=== PATIENT | female | born 1990 | race Caucasian/White ===

== ENCOUNTER → 2016-08-07 | Outpatient (CLI) | payer OTHER | END | disposition home or self-care (01) | LOC: LABWHC1 08:46 | PROVIDERS: ATTEND Obstetrics & Gynecology | DX: N91.2 Amenorrhea, unspecified (principal) | CPT/HCPCS: 36415; 84439; 84443 ==

== ENCOUNTER → 2016-12-31 | Outpatient (CLI) | payer OTHER ==
--- NOTE | 2016-12-31 13:56 | US ---
EXAMINATION TYPE: US OB <= 14 wk fetus DATE OF EXAM: 12/31/2016 COMPARISON: NONE CLINICAL HISTORY: Z36 CONFIRM DATES. Confirm dates, 3, para 2 EXAM PERFORMED: Transabdominal (TA) EXAM MEASUREMENTS: GESTATIONAL AGE / DATING Physician Established: (14 weeks/6 days) EDC: 06/25/2017 Dates by LMP: (14 weeks/6 days) EDC: 06/25/2017 Dates by First Scan: This is 1st scan Dates by Current Scan for: (13 weeks/3 days) EDC: 07/05/2017 MATERNAL ANATOMY Uterus: 15.9 x 8.6 x 7.5cm, anteverted Right Ovary: 2.8 x 2.0 x 2.9cm Left Ovary: 3.9 x 2.7 x 2.8cm Post CDS / Adnexa: wnl Presence of free fluid: no Presence of corpus luteal cyst: not seen at this time Presence of subchorionic bleed: no GESTATION / SURVEY CRL: 7.3cm (13 weeks/3 days) Yolk Sac (normal less than 6mm): not seen at this time Heart Rate: 150 bpm Rhythm: Normal IUP: Viable IUP Nuchal Translucency 10-14wks (normal less than 3mm): 2.3mm Date of LMP: 09/18/2016 Beta HcG (if available): Not available at time of exam Viable single IUP measuring 13 weeks 3 days with a heart rate of 150bpm and an estimated delivery denny e of 07/05/2017. Single live intrauterine gestation is present as gestational sac and pole are seen. Yolk sac is not clearly identified. No free fluid is seen in pelvic cul-de-sac. Both ovaries are identified. No suspicious extraovarian adnexal masses are seen. IMPRESSION: Single live intrauterine gestation is present, mean crown-rump length is 7.3 cm corresponding to a 13 week 3 day old fetus.
== END | disposition home or self-care (01) ==
LOC: RADUSWWP 12:57
PROVIDERS: ATTEND Obstetrics & Gynecology
DX: Z36 Encounter for antenatal screening of mother (principal); Z3A.14 14 weeks gestation of pregnancy
CPT/HCPCS: 76801; 76813

== ENCOUNTER → 2017-01-07 | Outpatient (CLI) | payer OTHER ==
[2017-01-07 15:52] LABS: CHCM 36.1; HDW 2.53; HGB 12.6 gm/dL (11.4-16.0); MCH 30.2 pg (25.0-35.0); MCV 86.2 fL (80.0-100.0); Mean Platelet Volume 6.2; RBC 4.18 m/uL (3.80-5.40); RDW 12.9 % (11.5-15.5); WBC 14.3 k/uL (3.8-10.6)
[2017-01-07 16:02] LABS: Glucose 81 mg/dL (74-99); Non-African American GFR(MDRD) >60 (>60 ml/min/1.73 sqM)
[2017-01-07 16:32] LABS: Hepatitis B Surface Ag Index 0.06
[2017-01-08 06:36] LABS: HIV-1/HIV-2 Ab Screen NONREAC (NON REAC)
== END ==
LOC: LABWHC1 15:19
PROVIDERS: ATTEND Obstetrics & Gynecology
DX: O26.811 Pregnancy related exhaustion and fatigue, first trimester (principal); Z3A.00 Weeks of gestation of pregnancy not specified
CPT/HCPCS: 36415; 82565; 82947; 85027; 86762; 86780; 86850; 86900; 86901; 87340; 87389

== ENCOUNTER → 2017-03-23 | Outpatient (CLI) | payer OTHER ==
[2017-03-23 09:17] LABS: CH 31.8; CHCM 34.9; HCT 35.6 % (34.0-46.0); HDW 2.67; HGB 12.5 gm/dL (11.4-16.0); MCH 32.1 pg (25.0-35.0); MCV 91.6 fL (80.0-100.0); Mean Platelet Volume 7.2; RBC 3.88 m/uL (3.80-5.40); RDW 14.6 % (11.5-15.5); WBC 12.3 k/uL (3.8-10.6)
== END ==
LOC: LABWHC1 08:01
PROVIDERS: ATTEND Obstetrics & Gynecology
DX: Z34.92 Encounter for supervision of normal pregnancy, unspecified, second trimester (principal); Z3A.00 Weeks of gestation of pregnancy not specified
CPT/HCPCS: 36415; 82950; 85027

== ENCOUNTER → 2017-03-27 | Outpatient (CLI) | payer OTHER ==
[2017-03-27 12:47] LABS: Glucose 3 Hour, Gest 106 mg/dL
== END | disposition home or self-care (01) ==
LOC: LABWHC1 07:53
PROVIDERS: ATTEND Obstetrics & Gynecology
DX: O99.810 Abnormal glucose complicating pregnancy (principal); Z3A.00 Weeks of gestation of pregnancy not specified
CPT/HCPCS: 36415; 82951; 82952

== ENCOUNTER → 2017-08-01 | Outpatient (CLI) | payer OTHER ==
[2017-08-01 09:34] LABS: Basophils # (A) 0.1 k/uL (0-0.2); Basophils % (A) 1 %; Eosinophils # (A) 0.2 k/uL (0-0.7); Eosinophils % (A) 3 %; HCT 45.6 % (34.0-46.0); HGB 15.2 gm/dL (11.4-16.0); Lymphocytes # (A) 2.2 k/uL (1.0-4.8); Lymphocytes % (A) 28 %; MCH 29.7 pg (25.0-35.0); MCHC 33.3 g/dL (31.0-37.0); MCV 88.9 fL (80.0-100.0); Mean Platelet Volume 6.9; Monocytes # (A) 0.4 k/uL (0-1.0); Monocytes % (A) 5 %; Neutrophils # (A) 4.8 k/uL (1.3-7.7); Neutrophils % (A) 63 %; Platelet Count 359 k/uL (150-450); RBC 5.13 m/uL (3.80-5.40); RDW 13.5 % (11.5-15.5); WBC 7.7 k/uL (3.8-10.6)
== END | disposition home or self-care (01) ==
LOC: LABPAT 09:11
PROVIDERS: ATTEND Obstetrics & Gynecology
DX: Z01.818 Encounter for other preprocedural examination (principal)
CPT/HCPCS: 85025

== ENCOUNTER 2017-08-12 07:13 | Day surgery (SDC) | payer OTHER ==
[2017-08-05 11:19] VITALS: BMI 34.9
--- NOTE | 2017-08-11 20:22 | P.HPOB ---
History of Present Illness H&P Date: 08/11/17 Chief Complaint: Family Planning 27 year old presents for laparoscopic tubal ligation. Review of Systems All systems: negative Constitutional: Denies chills, Denies fever Eyes: denies blurred vision, denies pain Ears, nose, mouth and throat: Denies headache, Denies sore throat Cardiovascular: Denies chest pain, Denies shortness of breath Respiratory: Denies cough Gastrointestinal: Denies abdominal pain, Denies diarrhea, Denies nausea, Denies vomiting Genitourinary: Denies dysuria, Denies hematuria Musculoskeletal: Denies myalgias Integumentary: Denies pruritus, Denies rash Neurological: Denies numbness, Denies weakness Psychiatric: Denies anxiety, Denies depression Endocrine: Denies fatigue, Denies weight change Past Medical History Past Medical History: No Reported History Additional Past Medical History / Comment(s): CURRENTLY BREAST FEEDING. OB history: 3 pregnancies and 3 vaginal deliveries History of Any Multi-Drug Resistant Organisms: None Reported Past Surgical History: No Surgical Hx Reported Additional Past Surgical History / Comment(s): WISDOM TEETH Past Anesthesia/Blood Transfusion Reactions: No Reported Reaction Past Psychological History: No Psychological Hx Reported Smoking Status: Former smoker Past Alcohol Use History: None Reported Past Drug Use History: None Reported - Past Family History Mother History Unknown: Yes Family Medical History: No Reported History Medications and Allergies Home Medications Medication Instructions Recorded Confirmed Type Rek-Grpt-Janqm Acid 1 each PO DAILY 12/09/13 08/05/17 History [-U Capsule] Allergies Allergy/AdvReac Type Severity Reaction Status Date / Time No Known Allergies Allergy Verified 08/05/17 11:13 Exam Osteopathic Statement: *. No significant issues noted on an osteopathic structural exam other than those noted in the History and Physical/Consult. Heart: RRR Lungs: CTAB Abdomen: soft, nontender Extremeties: neg zachary's Assessment and Plan (1) Family planning Status: Acute Code(s): Z30.09 - ENCOUNTER FOR OTH GENERAL CNSL AND ADVICE ON CONTRACEPTION SNOMED Code(s): 346085286 Plan: 1. laparoscopic tubal ligation. All risks, benefits and alternatives have been discussed with the patient in the office including that this is not a reversible procedure. She expressed complete understanding.
[~2017-08-12 07:13] MED LIST: DEXAMETHASONE SOD PHOSPHATE 10 MG/ML 1 ML VIAL IV ONE; HYDROmorphone 0.5 MG/0.5 ML SYRINGE IVP PRN; LACTATED RINGERS 1,000 ML IV SCH; MIDAZOLAM 2 MG/2 ML VIAL IV PRN; ONDANSETRON 4 MG/2 ML VIAL IVP ONE; Pre Op ABX Message 1 EACH MISC MISCELLANE ONE
[2017-08-12] MEDS ORDERED: LIDOCAINE 1% 20 ML VIAL (10MG/ML) FOR IV START INTRADERMA ONE (07:48)
[2017-08-12] MEDS ORDERED: KETOROLAC 30 MG/ML 1 ML VIAL ONE (07:59)
[2017-08-12] MEDS ORDERED: ROCURONIUM BROMIDE 10 MG/ML 10 ML VIAL IV ONE (07:59)
[2017-08-12] MEDS ORDERED: LIDOCAINE 1% INJ 10MG/ML (20 ML MDV) ONE (07:59)
[2017-08-12] MEDS ORDERED: NEOSTIGMINE 1 MG/ML 10 ML VIAL ONE (07:59)
[2017-08-12] MEDS ORDERED: GLYCOPYRROLATE 0.2 MG/ML 2 ML VIAL ONE (07:59)
[2017-08-12] MEDS ORDERED: SUCCINYLCHOLINE CHLORIDE 100 MG/5 ML SYR IV ONE (07:59)
[2017-08-12] MEDS ORDERED: fentaNYL (PF) 50 MCG/ML 2 ML AMP ONE (07:59)
[2017-08-12] MEDS ORDERED: PROPOFOL 10 MG/ML 20 ML VIAL IV ONE (07:59)
[2017-08-12] MEDS ORDERED: MIDAZOLAM 2 MG/2 ML VIAL ONE (07:59)
[2017-08-12] MEDS ORDERED: BUPIVACAINE (PF) 0.25% 30 ML VIAL SQ ONE ×2 (08:17)
--- NOTE | 2017-08-12 08:52 | P.OP ---
Date of Procedure: 08/12/17 Preoperative Diagnosis: 1. FAmily planning Postoperative Diagnosis: 1. Family planning Procedure(s) Performed: laparoscopic tubal ligation Anesthesia: TEVIN Surgeon: Pooja Zavala Estimated Blood Loss (ml): 5 Urine output (ml): 20 Pathology: none sent Condition: stable Disposition: PACU Operative Findings: normal uterus, tubes and ovaries Description of Procedure: Patient was taken to the operating room where general anesthesia was obtained without difficulty. She was prepped and draped in normal sterile fashion in the dorsal lithotomy position, legs placed in the Aj stirrups. Bladder drained of all urine. [place] speculum placed in the vagina and the anterior lip the cervix was grasped with single-tooth tenaculum. The uterus is sounded to 9 cm and the kroner manipulator was placed. Attention was then turned to the abdomen and gloves were changed. A 10 mm infraumbilical incision was made the scalpel and 10 mm optical trocar was placed under direct visualization. A 5 mm suprapubic Incision was made and a 5 mm optical trocar was placed under direct visualization. Survey of the pelvis revealed normal uterus tubes and ovaries. The left fallopian tube was grasped with a Kleppinger and fulgurated 2 -3 cm on this side in the ampullar portion. The right fallopian tube was grasped with a Kleppinger and fulgurated 2-3 cm in the ampullar portion. All instruments were then removed from the abdomen and vagina. The 10 mm infraumbilical incision was closed with 0 Vicryl and the fascial layer and then 4-0 Vicryl in a subcuticular fashion. The 5 mm incision was closed with 4-0 Vicryl in a subcuticular fashion. Patient tolerated procedure well, sponge and instrument counts correct 2 and she was taken to recovery room in stable condition.
[2017-08-12 08:55] VITALS: RESP 16; TEMP 97.6
[2017-08-12] MEDS ORDERED: HYDROcodone/APAP 5-325MG 1 EACH TAB PO ONE (10:01)
[2017-08-12 10:03] VITALS: BP 129/81; PULSE 79
== END 2017-08-12 10:57 | disposition home or self-care (01) ==
LOC: OR 07:13
PROVIDERS: ATTEND Obstetrics & Gynecology
DX: Z30.2 Encounter for sterilization (principal); Z79.899 Other long term (current) drug therapy; Z87.891 Personal history of nicotine dependence
CPT/HCPCS: 58670; 81025; J2250; J1100; J2710; J2405; J2001; J3010; J1885; J0330; J2704

== ENCOUNTER 2018-07-30 15:04 | Emergency (ER) | payer OTHER ==
[2018-07-30 16:35] VITALS: BP 128/81; RESP 18
--- NOTE | 2018-07-30 18:05 | ED ---
General Adult HPI - General Chief complaint: Upper Respiratory Infection Stated complaint: cough, pain when breathing and coughing Time Seen by Provider: 07/30/18 17:43 Source: patient, RN notes reviewed Mode of arrival: ambulatory Limitations: no limitations - History of Present Illness Initial comments: Patient 28-year-old female presented to the emergency room today with chief complaint of cough congestion over the last month. She does admit that she has had sputum production. Patient states she was coughing today and felt pain to the left lower anterior rib. She states that she has pain when she coughs or sneezes. She denies any other complaints or symptoms. Patient denies any recent fever, chills, shortness of breath, chest pain, back pain, abdominal pain , nausea or vomiting, numbness or tingling, headaches or visual changes, or any other complaints. - Related Data Home Medications Medication Instructions Recorded Confirmed Nrj-Tdsv-Flxmn Acid 1 each PO DAILY 12/09/13 08/05/17 [-U Capsule] Previous Rx's Medication Instructions Recorded HYDROcodone/APAP 5-325MG [[place] 1 - 2 tab PO Q6HR PRN #14 tab 08/12/17 5-325] Ibuprofen [Motrin] 600 mg PO Q6HR PRN #30 tab 08/12/17 Azithromycin [Zithromax Z-pack] 0 mg PO DIRECTED #6 tab 07/30/18 guaiFENesin 400 mg PO Q4-6H #30 tablet 07/30/18 Allergies Allergy/AdvReac Type Severity Reaction Status Date / Time No Known Allergies Allergy Verified 07/30/18 16:31 Review of Systems ROS Statement: Those systems with pertinent positive or pertinent negative responses have been documented in the HPI. ROS Other: All systems not noted in ROS Statement are negative. Past Medical History Past Medical History: No Reported History Additional Past Medical History / Comment(s): Obstetrical history: She has had two previous vaginal deliveries. This is her third . She has had good care with me since 12 weeks gestation. Dating is by a 13 week ultrasound. Her blood type is O+, antibodies negative, rubella Immune, HIV negative, hepatitis B negative, RPR nonreactive. She declined quad screening, had an abnormal glucose tolerance test but a normal three-hour. Group beta strep negative. History of Any Multi-Drug Resistant Organisms: None Reported Past Surgical History: Tubal Ligation Past Anesthesia/Blood Transfusion Reactions: No Reported Reaction Past Psychological History: No Psychological Hx Reported Smoking Status: Never smoker Past Alcohol Use History: None Reported Past Drug Use History: None Reported - Past Family History Mother History Unknown: Yes General Exam - General Exam Comments Initial Comments: General: The patient is awake and alert, in no distress, and does not appear acutely ill. Eye: There is normal conjunctiva bilaterally. No signs of icterus. Ears, nose, mouth and throat: There are moist mucous membranes and no oral lesions. Neck: The neck is supple, there is no tenderness or JVD. Cardiovascular: There is a regular rate and rhythm. No murmur, rub or gallop is appreciated. Respiratory: Lungs are clear to auscultation, respirations are non-labored, breath sounds are equal. No wheezes, stridor, rales, or rhonchi. Gastrointestinal: Soft, non-distended, non-tender abdomen without masses or organomegaly noted. There is no rebound or guarding present. No CVA tenderness. Musculoskeletal: Normal ROM. tender to palpation over the left anterior lower ribs. No step-off or deformity. Strength 5/5. Sensation intact. Pulses equal bilaterally 2+. Neurological: A&O x 3. CN II-XII intact, There are no obvious motor or sensory deficits. Coordination appears grossly intact. Speech is normal. Skin: Skin is warm and dry and no rashes or lesions are noted. Psychiatric: Cooperative, appropriate mood & affect, normal judgment. Limitations: no limitations Course Vital Signs 07/30/18 16:32 Temperature 98.8 F Pulse Rate 83 Respiratory 18 Rate Blood Pressure 128/81 O2 Sat by Pulse 96 Oximetry Medical Decision Making - Medical Decision Making chest x-ray reviewed negative for any acute abnormality. Patient's pain is reproduced on palpation. She does admit that she had a coughing spell today that causes pain. She has had cough congestion over the last month with sputum production. Patient be treated for bronchitis started on antibiotic advised following up with family doctor over the next 2 days. Advised return if any symptoms increase or worsen or for any other concerns. Disposition Clinical Impression: Acute bronchitis Disposition: HOME SELF-CARE Condition: Good Additional Instructions: Please use medication as discussed. Please follow-up with family doctor in the next 2 days of symptoms have not improved. Please return to emergency room if the symptoms increase or worsen or for any other concerns. Prescriptions: Azithromycin [Zithromax Z-pack] 0 mg PO DIRECTED #6 tab guaiFENesin 400 mg PO Q4-6H #30 tablet Is patient prescribed a controlled substance at d/c from ED?: No Referrals: Ezequiel Cheatham MD [Primary Care Provider] - 1-2 days Time of Disposition: 18:26
--- NOTE | 2018-07-30 18:24 | XR ---
EXAMINATION TYPE: XR chest 2V DATE OF EXAM: 07/30/2018 COMPARISON: NONE HISTORY: Cough TECHNIQUE: Frontal and lateral views of the chest are obtained. FINDINGS: Heart and mediastinum are normal. Lungs are clear. Diaphragm is normal. Bony thorax appear s normal. IMPRESSION: Normal chest.
[2018-07-30 18:55] VITALS: PULSE 82; TEMP 97
== END 2018-07-30 18:54 | disposition home or self-care (01) ==
LOC: EC 15:04
DX: J20.9 Acute bronchitis, unspecified (principal)
CPT/HCPCS: 71046; 99283